=== PATIENT | male | born 1995 ===

== ENCOUNTER 2023-05-23 09:20 | Outpatient (CLI) | payer OTHER ==
--- NOTE | 2023-05-24 11:38 | MRI Report ---
PROCEDURE: KNEE WO - RT INDICATIONS: RIGHT KNEE PAIN TECHNIQUE: Noncontrast sagittal PD fast spin echo and T2 fast spin echo with fat saturation, sagittal 3-D gradie nt sequence with fat saturation; coronal T1 spin echo and PD fast spin echo with fat saturation, and axial PD fast spin echo with fat saturation through the knee. COMPARISON: None. FINDINGS: Image quality: Excellent. Menisci: There is complex tear involving the posterior horn of the medial meniscus. There is a cluste r of small meniscal cysts adjacent to the anterior root of the medial meniscus measuring 5 mm (series 5 image 12; series 3 image 26). Lateral meniscus demonstrates normal morphology and internal signal. Cruciate ligaments: The anterior and posterior cruciate ligaments appear intact. Medial structures: The medial collateral ligament appears intact. The semimembranosus tendon insert ions and meniscocapsular junction appear intact. Visualized portions of the pes anserinus tendons ap pear normal. No abnormal bursal fluid. Lateral structures: The lateral collateral ligament and the biceps femoris tendon appear intact. Th e popliteus tendon appears normal. Iliotibial band appears normal. Anterior structures: The quadriceps and patellar tendons appear intact. Patellar alignment is stefan l. No femoral trochlear dysplasia or ventral trochlear prominence. No edema in the infrapatellar fa t pad. Bones and cartilage: No bone marrow contusions or fractures. The cartilage of the medial and latera l femorotibial compartments, as well as the patellofemoral compartment, appears normal in thickness. Joint space: There is small knee joint fluid. No Penn's cyst. Normal appearing synovial plicae ar e incidentally noted. IMPRESSION: 1. Medial meniscal tear. 2. Small knee joint effusion. Reviewed by: Perla Perdue MD on 05/24/2023 11:36 AM PDT Approved by: Perla Perdue MD on 05/24/2023 11:36 AM PDT Station ID: [id number]
== END 2023-05-23 09:21 | disposition home or self-care (01) ==
LOC: EDSEX → DI 09:20
PROVIDERS: ATTEND Family Medicine
DX: S83.231A Complex tear of medial meniscus, current injury, right knee, initial encounter (principal); M25.461 Effusion, right knee